=== PATIENT | male | born 1980 | race Caucasian/White ===

== ENCOUNTER 2017-09-27 11:21 | Emergency (ER) | payer MEDICAID ==
[~2017-09-27] VITALS: Ht 175.3 cm; Wt 90.7 kg
[2017-09-27 13:44] VITALS: BP 152/82
== END 2017-09-27 15:49 | disposition home or self-care (01) ==
LOC: ER 11:21
DX: S02.2XXA Fracture of nasal bones, initial encounter for closed fracture (principal); S01.111A Laceration without foreign body of right eyelid and periocular area, initial encounter; K43.9 Ventral hernia without obstruction or gangrene; G89.29 Other chronic pain; Y08.89XA Assault by other specified means, initial encounter; Y93.89 Activity, other specified; Y99.8 Other external cause status; Y92.89 Other specified places as the place of occurrence of the external cause
CPT/HCPCS: 70486; 74176